=== PATIENT | female | born 1995 | race American Indian/Alaskan Native ===

== ENCOUNTER 2017-03-05 00:34 | Emergency (ER) | payer MEDICAID ==
[2017-03-05 01:12] VITALS: TEMP 98.3
--- NOTE | 2017-03-05 02:02 | ED PDOC ---
Arrival/HPI - General Chief Complaint: Dizziness/Lightheaded Time Seen by Provider: 03/05/17 01:27 Historian: Patient - History of Present Illness Narrative History of Present Illness (Text): 03/05/17 01:58 Jasmin Westfall is a 21 year old female, who is reportedly 21 weeks , complaining of occasional dizziness for one month. Patient states that she was prescribed iron pills a couple days ago by her rail transportation operator for anemia which she has not filled yet. Patient denies any headache, abdominal pain, vaginal bleeding, chest pain, shortness of breath, or any other complaints at this time. Time/Duration: Other (1 month) Symptom Onset: Gradual Activities at Onset: Light Context: Home Past Medical History - Provider Review Nursing Documentation Reviewed: Yes - Infectious Disease Hx of Infectious Diseases: None - Reproductive Menopause: No - Psychiatric Hx Substance Use: No Family/Social History - Physician Review Nursing Documentation Reviewed: Yes Family/Social History: No Known Family HX Smoking Status: Unknown If Ever Smoked Hx Alcohol Use: No Hx Substance Use: No Allergies/Home Meds Allergies/Adverse Reactions: Allergies No Known Allergies Allergy (Unverified 03/05/17 01:49) Review of Systems - Physician Review All systems were reviewed & negative as marked: Yes - Review of Systems Constitutional: absent: Fevers, Night Sweats Eyes: absent: Vision Changes ENT: absent: Hearing Changes Respiratory: absent: SOB, Cough Cardiovascular: absent: Chest Pain Gastrointestinal: absent: Abdominal Pain Genitourinary Female: absent: Dysuria, Frequency Musculoskeletal: absent: Arthralgias Skin: absent: Rash Neurological: Dizziness. absent: Facial Droop Endocrine: absent: Diaphoresis Hemo/Lymphatic: absent: Adenopathy Physical Exam Vital Signs Temp Pulse Resp BP Pulse Ox 03/05/17 00:50 98.3 F 93 H 16 113/64 100 Temperature: Afebrile Blood Pressure: Normal Pulse: Tachycardic Respiratory Rate: Normal Appearance: Positive for: Well-Appearing, Non-Toxic, Comfortable Pain Distress: None Mental Status: Positive for: Alert and Oriented X 3 - Systems Exam Head: Present: Atraumatic, Normocephalic Pupils: Present: PERRL Extroacular Muscles: Present: EOMI Conjunctiva: Present: Normal Mouth: Present: Moist Mucous Membranes Neck: Present: Normal Range of Motion Respiratory/Chest: Present: Clear to Auscultation, Good Air Exchange. No: Respiratory Distress, Accessory Muscle Use Cardiovascular: Present: Regular Rate and Rhythm, Normal S1, S2. No: Murmurs Abdomen: Present: Normal Bowel Sounds. No: Tenderness, Distention, Peritoneal Signs Back: Present: Normal Inspection Upper Extremity: Present: Normal Inspection. No: Cyanosis, Edema Lower Extremity: Present: Normal Inspection. No: Edema Neurological: Present: GCS=15, CN II-XII Intact, Speech Normal Skin: Present: Warm, Dry, Normal Color. No: Rashes Psychiatric: Present: Alert, Oriented x 3, Normal Insight, Normal Concentration Medical Decision Making ED Course and Treatment: 03/05/17 02:04 Impression: 21 year old female complaining of occasional dizziness for 1 month. Differential Diagnosis included but are not limited to: Plan: -- EKG -- Urinalysis -- Labs -- Reassess and disposition Prior Visits: Notes and results from previous visits were reviewed. Patient last seen in the ED on Progress Notes: EKG: Ordered, reviewed, and independently interpreted the EKG. Rate : 84 BPM Rhythm : NSR Interpretation : No ST-segment elevations or depressions, no T-wave inversions, normal intervals. Comparison : No previous EKG for comparison. - Lab Interpretations Lab Results: 03/05/17 02:47 03/05/17 02:47 Lab Results 03/05/17 02:47: WBC 10.1, RBC 3.26 L, Hgb 8.4 L, Hct 26.2 L, MCV 80.4, MCH 25.8 , MCHC 32.1, RDW 14.0, Plt Count 325, MPV 8.4 03/05/17 02:47: Beta HCG, Quant 91416.00 H 03/05/17 02:47: Sodium 138, Potassium 3.9, Chloride 103, Carbon Dioxide 25, Anion Gap 14, BUN 7, Creatinine 0.5 L, Est GFR ( Amer) > 60, Est GFR (Non -Af Amer) > 60, Random Glucose 98, Calcium 9.5, Total Bilirubin 0.2, AST 25, ALT 25, Alkaline Phosphatase 96, Total Protein 7.3, Albumin 4.1, Globulin 3.1, Albumin/Globulin Ratio 1.3 03/05/17 02:47: Urine Color Yellow, Urine Appearance Sl cloudy, Urine pH 6.5, Ur Specific [place] 1.025, Urine Protein 30 H, Urine Glucose (UA) Negative, Urine Ketones Trace H, Urine Blood Negative, Urine Nitrate Negative, Urine Bilirubin Negative, Urine Urobilinogen 2.0 H, Ur Leukocyte Esterase Small H, Urine RBC 0 - 2, Urine WBC 2 - 5, Ur Epithelial Cells 6 - 8, Urine Bacteria Many , Urine HCG, Qual Positive - Scribe Statement The provider has reviewed the documentation as recorded by the Mag Rowell Provider Scribe Attestation: All medical record entries made by the Scribe were at my direction and personally dictated by me. I have reviewed the chart and agree that the record accurately reflects my personal performance of the history, physical exam, medical decision making, and the department course for this patient. I have also personally directed, reviewed, and agree with the discharge instructions and disposition. Disposition/Present on Arrival - Present on Arrival Any Indicators Present on Arrival: No History of DVT/PE: No History of Uncontrolled Diabetes: No Urinary Catheter: No History of Decub. Ulcer: No History Surgical Site Infection Following: None - Disposition Have Diagnosis and Disposition been Completed?: Yes Diagnosis: Anemia, Disposition: HOME/ ROUTINE Disposition Time: 04:05 Patient Plan: Discharge Patient Problems: Current Active Problems Problem Status Onset Anemia Acute Acute Condition: STABLE Discharge Instructions (ExitCare): (ED), Anemia (ED) Additional Instructions: Take your iron pill medication as prescribed by your rail transportation operator doctor/avoid any strenuous physical activity/follow up with your rail transportation operator doctor this week Forms: [employer] (Sami)
[2017-03-05 03:06] LABS: HEMATOCRIT 26.2 % (36.0-48.0); MEAN CELL VOLUME 80.4 fl (80.0-105.0); MEAN CORPUSCULAR HEMOGLOBIN 25.8 pg (25.0-35.0); MEAN CORPUSCULAR HGB CONC 32.1 g/dl (31.0-37.0); MEAN PLATELET VOLUME 8.4 fl (7.0-11.0); WHITE BLOOD COUNT 10.1 10^3/ul (4.5-11.0)
[2017-03-05 03:08] LABS: PH,URINE 6.5 (4.7-8.0); URINE BILIRUBIN NEGATIVE (NEGATIVE); URINE BLOOD NEGATIVE (NEGATIVE); URINE GLUCOSE (UA) NEGATIVE (NEGATIVE); URINE KETONE TRACE mg/dL (NEGATIVE); URINE LEUKOCYTE ESTERASE SMALL Leu/uL (NEGATIVE); URINE PROTEIN 30 mg/dL (<30 mg/dL)
[2017-03-05 03:13] LABS: URINE APPEARANCE SL CLOUDY (CLEAR); URINE COLOR YELLOW (YELLOW)
[2017-03-05 03:25] LABS: ALB/GLOB RATIO 1.3 (1.1-1.8); ALKALINE PHOSPHATASE 96 U/L (38-126); ALT/SGPT 25 U/L (7-56); AST/SGOT 25 U/L (14-36); BILIRUBIN,TOTAL 0.2 mg/dL (0.2-1.3); BLOOD UREA NITROGEN 7 mg/dL (7-21); CALCIUM 9.5 mg/dL (8.4-10.5); CARBON DIOXIDE 25 mmol/L (21-33); CHLORIDE 103 mmol/L (98-107); GFR AFRICAN-AMERICAN > 60; GLUCOSE,RANDOM 98 mg/dL (70-110); POTASSIUM 3.9 mmol/L (3.6-5.0); SODIUM 138 mmol/L (132-148); TOTAL PROTEIN 7.3 g/dL (5.8-8.3)
[2017-03-05 03:36] LABS: URINE BACTERIA MANY (NEG); URINE RBC 0 - 2 /hpf (0-2)
[2017-03-05 06:34] VITALS: BP 115/65; PULSE 89; RESP 18; O2SAT 99
--- NOTE | 2017-03-05 15:22 | CARD ---
APPROVED REPORT EKG Measurement Heart [id number] <Conclusion> Normal sinus rhythm Normal ECG
== END 2017-03-05 04:10 | disposition home or self-care (01) ==
LOC: ED 00:34
DX: O99.012 Anemia complicating pregnancy, second trimester (principal); Z3A.21 21 weeks gestation of pregnancy

== ENCOUNTER 2018-04-26 20:08 | Emergency (ER) | payer MEDICAID ==
[2018-04-26 20:09] VITALS: BMI 36.5
[2018-04-26 20:16] VITALS: RESP 18; TEMP 98.2
--- NOTE | 2018-04-26 20:27 | ED PDOC ---
Arrival/HPI - General Chief Complaint: Anxiety Historian: Patient - History of Present Illness Narrative History of Present Illness (Text): 04/26/18 20:24 23 y/o female, no significant pmh, nkda, c/o anterior chest pain x 1 day. Pt. stated that she has been sleeping on the chest/abdomen for the past 2 days due to working alot, went to shopping today and return home with the anterior chest pain, non-radiating, aggravated by touching, no fall or trauma, no pleuritic pain, no night sweat, no numbness or tingling, no other medical or psychological complaints. Past Medical History - Provider Review Nursing Documentation Reviewed: Yes - Infectious Disease Hx of Infectious Diseases: None - Cardiac Hx Cardiac Disorders: No Hx Hypertension: No - Psychiatric Hx Depression: No Hx Substance Use: No Family/Social History - Physician Review Nursing Documentation Reviewed: Yes Family/Social History: Unknown Family HX Smoking Status: Former Smoker Hx Alcohol Use: No Hx Substance Use: No Allergies/Home Meds Allergies/Adverse Reactions: Allergies No Known Allergies Allergy (Unverified 03/05/17 01:49) Home Medications: Home Meds Medication Instructions Recorded Confirmed Pnv No.95/Ferrous Fum/Folic AC 1 tab PO DAILY MDD 1 07/16/17 07/16/17 [ Vitamin Tablet] Review of Systems - Review of Systems Constitutional: absent: Fatigue, Fevers Eyes: absent: Vision Changes ENT: absent: Hearing Changes Respiratory: absent: SOB, Cough Cardiovascular: Chest Pain Gastrointestinal: absent: Abdominal Pain, Nausea, Vomiting Musculoskeletal: Myalgias. absent: Arthralgias, Back Pain, Neck Pain, Joint Swelling Skin: absent: Rash, Pruritis Neurological: absent: Headache Psychiatric: absent: Anxiety, Depression, Suicidal Ideation Physical Exam Vital Signs Reviewed: Yes Vital Signs Temp Pulse Resp BP Pulse Ox 04/26/18 20:15 98.2 F 89 18 116/75 100 Temperature: Afebrile Blood Pressure: Normal Pulse: Regular Respiratory Rate: Normal Appearance: Positive for: Well-Appearing, Non-Toxic, Comfortable Pain Distress: Moderate Mental Status: Positive for: Alert and Oriented X 3 - Systems Exam Head: Present: Atraumatic, Normocephalic Pupils: Present: PERRL Extroacular Muscles: Present: EOMI Conjunctiva: Present: Normal Mouth: Present: Moist Mucous Membranes Neck: Present: Normal Range of Motion Respiratory/Chest: Present: Clear to Auscultation, Good Air Exchange, Tender to Palpation (pain is 100% reproducible by palpating the anterior pectoralis major muscle region). No: Respiratory Distress, Accessory Muscle Use, Wheezes, Decreased Breath Sounds, Rales, Retracting, Rhonchi, Tachypneic Cardiovascular: Present: Regular Rate and Rhythm, Normal S1, S2. No: Murmurs Abdomen: No: Tenderness, Distention, Peritoneal Signs Back: Present: Normal Inspection Upper Extremity: Present: Normal Inspection, Normal ROM, NORMAL PULSES, Neurovascularly Intact. No: Cyanosis, Edema, Deformity Lower Extremity: Present: Normal Inspection, NORMAL PULSES, Normal ROM, Neurovascularly Intact. No: Edema, Stacy's Sign, Tenderness, Swelling, Deformity Neurological: Present: GCS=15, CN II-XII Intact, Speech Normal, Motor Func Grossly Intact, Gait Normal, Memory Normal Skin: Present: Warm, Dry, Normal Color. No: Rashes Psychiatric: Present: Alert, Oriented x 3, Normal Insight, Normal Concentration Medical Decision Making ED Course and Treatment: 04/26/18 20:26 -Labs -ekg -cxr -IVF pepcid/toradol 04/26/18 22:44 -Urine hcg is negative -EKG: NSR @ 76 BPM, no ST elevation or depression, T wave inversion on lead V3. -CXR ER wet read show no active disease -Labs show no acute findings except chronic anemia hgb 9.5 from 7.4 -Mg within normal limit -Trop within normal limit -Dimer within normal limit -HEART score is low -All labs/radiology results discussed with the patient, advised outpatient salesperson burial needs and hematology oncology follow up. -Pt. is feeling better, asymptomatic, no pain now, request to be discharged home, will discharge home. -Discharge home with naproxen, bed rest, follow up with your own pmd and GI/Obstetrician And Gynaecologist and oncologist within 2 days, return to the ER for any new or worsening signs or symptoms. - RAD Interpretation Radiology Orders: 04/26/18 20:22 CHEST TWO VIEWS (PA/LAT) [RAD] Stat no active disease Shoe Fitter: Radiologist - EKG Interpretation EKG Interpretation (Text): 04/26/18 22:15 -EKG: NSR @ 76 BPM, no ST elevation or depression, T wave inversion on lead V3. Interpreted by ED Physician: Yes Type: 12 lead EKG - Medication Orders Current Medication Orders: Famotidine (Pepcid) 20 mg IVP STAT STA Stop: 04/26/18 20:23 Ketorolac Tromethamine (Toradol) 30 mg IVP STAT STA Stop: 04/26/18 20:23 - PA / COMPUTER SCIENCE PROFESSOR / Resident Statement MD/DO has reviewed & agrees with the documentation as recorded. Disposition/Present on Arrival - Present on Arrival Any Indicators Present on Arrival: No History of DVT/PE: No History of Uncontrolled Diabetes: No Urinary Catheter: No History of Decub. Ulcer: No History Surgical Site Infection Following: None - Disposition Have Diagnosis and Disposition been Completed?: Yes Diagnosis: Chronic anemia, Atypical chest pain Disposition: HOME/ ROUTINE Disposition Time: 22:48 Patient Plan: Discharge Condition: IMPROVED Additional Instructions: -Discharge home with naproxen, pepcid, bed rest, follow up with your own pmd and GI/Obstetrician And Gynaecologist and oncologist within 2 days, return to the ER for any new or worsening signs or symptoms. Prescriptions: Famotidine [Pepcid] 20 mg PO BID #20 tab Naproxen 500 mg PO BID PRN #20 tab PRN Reason: Other Referrals: Cathy Rivera MD [Primary Care Provider] - Follow up with primary Rajan Davey MD [Staff Provider] - Follow up with primary Lubna Suazo MD [Staff Provider] - Follow up with primary Forms: [employer] (Azeri), WORK NOTE
[2018-04-26 20:55] LABS: ALB/GLOB RATIO 1.3 (1.1-1.8); ALBUMIN 4.3 g/dL (3.0-4.8); ALT/SGPT 31 U/L (7-56); AST/SGOT 23 U/L (14-36); BLOOD UREA NITROGEN 13 mg/dL (7-21); CALCIUM 8.6 mg/dL (8.4-10.5); GFR NON-AFRICAN AMERICAN > 60
[2018-04-26 21:06] LABS: TROPONIN I < 0.01 ng/mL
[2018-04-26 21:14] LABS: HEMOGLOBIN 9.5 g/dL (12.0-16.0); RBC 3.93 10^6/uL (3.5-6.1); WHITE BLOOD COUNT 8.9 10^3/uL (4.5-11.0)
[2018-04-26 21:15] LABS: BASO # 0.02 K/mm3 (0.0-2.0); BASO % 0.2 % (0.0-3.0); EOS # 0.1 (0.0-0.7); EOS % 1.3 % (1.5-5.0); GRAN # 5.54 (1.4-6.5); GRAN % 62.2 % (50.0-68.0); LYMPH # 2.8 (1.2-3.4); LYMPH % 31.3 % (22.0-35.0); MEAN CELL VOLUME 77.6 fl (80.0-105.0); MEAN CORPUSCULAR HEMOGLOBIN 24.2 pg (25.0-35.0); MEAN CORPUSCULAR HGB CONC 31.1 g/dl (31.0-37.0); MEAN PLATELET VOLUME 8.9 fl (7.0-11.0); MONO # 0.5 (0.1-0.6); RED CELL DISTRIBUTION WIDTH 15.1 % (11.5-14.5)
[2018-04-26 23:11] VITALS: BP 116/70; PULSE 80; O2SAT 100
--- NOTE | 2018-04-27 12:49 | RAD ---
Date of service: 04/26/2018 HISTORY: chest pain COMPARISON: No prior. TECHNIQUE: Chest PA and lateral FINDINGS: LUNGS: No active pulmonary disease. PLEURA: No significant pleural effusion identified. No pneumothorax apparent. CARDIOVASCULAR: No aortic atherosclerotic calcification present. Normal cardiac size. No pulmonary vascular congestion. OSSEOUS STRUCTURES: No significant abnormalities. VISUALIZED UPPER ABDOMEN: Normal. OTHER FINDINGS: None. IMPRESSION: No active disease.
--- NOTE | 2018-04-27 17:36 | CARD ---
APPROVED REPORT Date of service: 04/26/2018 EKG Measurement Heart [id number] <Conclusion> Normal sinus rhythm Normal Electrocardiogram
== END 2018-04-26 23:00 | disposition home or self-care (01) ==
LOC: ED 20:08
DX: D64.9 Anemia, unspecified (principal); R07.89 Other chest pain; Z87.891 Personal history of nicotine dependence
CPT/HCPCS: 71046; 80053; 82550; 83735; 84484; 85025; 85378; 93005; 96374; 96375; 99284; J1885